=== PATIENT | male | born 1995 | race Two or more races ===

== ENCOUNTER 2023-03-20 23:20 | Emergency (ER) | payer SELFPAY ==
[~2023-03-20] VITALS: Ht 165.1 cm; Wt 72.7 kg
[2023-03-20 23:32] VITALS: BP 119/79; PULSE 113; RESP 20; TEMP 98.5
[2023-03-20] MEDS ORDERED: ONDANSETRON HCL 4 MG/2 ML VIAL IVP ONE (23:45)
[2023-03-20] MEDS ORDERED: HYDROmorphone HCL 2 MG/ML SYRINGE IVP ONE (23:45)
[2023-03-21] MEDS ORDERED: KETOROLAC TROMETHAMINE 30 MG/ML VIAL IM ONE
[2023-03-21] MEDS ORDERED: IBUP-1492 PO (00:09)
== END 2023-03-21 00:27 | disposition home or self-care (01) ==
LOC: EMS 23:22
DX: S43.102A Unspecified dislocation of left acromioclavicular joint, initial encounter (principal); F17.210 Nicotine dependence, cigarettes, uncomplicated; W19.XXXA Unspecified fall, initial encounter; Y93.89 Activity, other specified; Y92.89 Other specified places as the place of occurrence of the external cause; Y99.8 Other external cause status
CPT/HCPCS: 99283; 73030; 96372; J1885